=== PATIENT | female | born 1990 | race Caucasian/White ===

== ENCOUNTER 2017-11-28 09:27 | Emergency (ER) | payer MEDICAID, SELFPAY ==
[~2017-11-28] VITALS: Ht 180.3 cm; Wt 93.2 kg
[2017-11-28] MEDS ORDERED: LITH300C3 PO (09:50)
[2017-11-28] MEDS ORDERED: LURA40 PO (09:50)
[2017-11-28] MEDS ORDERED: SERT50TA12 PO (09:50)
[2017-11-28] MEDS ORDERED: HYDR-4031 PO (09:50)
[2017-11-28] MEDS ORDERED: BUSP5TAB20 PO (09:50)
[2017-11-28] MEDS ORDERED: QUET25TA PO (09:50)
[2017-11-28] MEDS ORDERED: AMOX TR/POT CLAV 500 MG/125 MG TABLET PO ONE (12:00)
[2017-11-28] MEDS ORDERED: HYDROCODONE/ACETAMINOPHEN 5-325 MG TABLET PO ONE (12:00)
[2017-11-28 12:30] VITALS: BP 125/16
== END 2017-11-28 12:59 | disposition home or self-care (01) ==
LOC: EMS 09:28
DX: K04.7 Periapical abscess without sinus (principal); K05.10 Chronic gingivitis, plaque induced; F32.9 Major depressive disorder, single episode, unspecified; F17.210 Nicotine dependence, cigarettes, uncomplicated; F12.10 Cannabis abuse, uncomplicated; F17.200 Nicotine dependence, unspecified, uncomplicated; Z88.5 Allergy status to narcotic agent
CPT/HCPCS: 99283; 99406

== ENCOUNTER 2018-02-23 16:43 | Emergency (ER) | payer MEDICAID ==
[~2018-02-23] VITALS: Ht 180.3 cm; Wt 113.6 kg
[~2018-02-23 16:43] MED LIST: BUSP5TAB20 PO; HYDR-4031 PO; LITH300C3 PO; LURA40 PO; QUET25TA PO; SERT50TA12 PO
[2018-02-23 16:48] VITALS: BP 121/88
[2018-02-23] MEDS ORDERED: TRAZ-147 PO (16:55)
[2018-02-23] MEDS ORDERED: HYD25 PO (17:04)
== END 2018-02-23 20:30 | disposition left against medical advice (07) ==
LOC: EMS 16:44
DX: F41.9 Anxiety disorder, unspecified (principal); Z53.21 Procedure and treatment not carried out due to patient leaving prior to being seen by health care provider

== ENCOUNTER 2018-04-13 10:24 | Emergency (ER) | payer MEDICAID ==
[~2018-04-13] VITALS: Ht 180.3 cm; Wt 109.1 kg
[~2018-04-13 10:24] MED LIST changes: +HYD25 PO; -HYDR-4031 PO; -LURA40 PO; -QUET25TA PO; -SERT50TA12 PO; +TRAZ-220 PO
[2018-04-13] MEDS ORDERED: ARIP300S3 IM (10:26)
[2018-04-13] MEDS ORDERED: LEVO50TA11 PO (11:15)
[2018-04-13] MEDS ORDERED: VENL150C2 PO (11:16)
[2018-04-13 12:52] LABS: BASOPHILS % (AUTO) 1.4 % (0.0-2.0); EOSINOPHILS % (AUTO) 5.8 % (1.0-6.0); HEMATOCRIT 39.2 % (36-46); HEMOGLOBIN 13.4 g/dL (12.0-16.0); LYMPHOCYTES # (AUTO) 3.1 K/uL (1.0-4.8); LYMPHOCYTES % (AUTO) 30.3 % (22.0-44.0); MEAN CORPUSCULAR HEMOGLOBIN 29.9 pg (26.0-34.0); MEAN CORPUSCULAR HGB CONC 34.1 G/dL (31.0-37.0); MEAN CORPUSCULAR VOLUME 88 fL (80-100); MONOCYTES # (AUTO) 0.7 K/uL (0.1-1.0); NEUTROPHILS # (AUTO) 5.7 K/uL (1.8-7.7); NEUTROPHILS % (AUTO) 55.5 % (40.0-70.0); PLATELET COUNT (AUTO) 363 K/uL (150-450); RED BLOOD CELL COUNT(AUTO) 4.47 MIL/uL (4.00-5.20); RED CELL DISTRIBUTION WIDTH 13.2 % (11.5-14.5)
[2018-04-13] MEDS ORDERED: IBUPROFEN 600 MG TABLET PO ONE (13:00)
[2018-04-13 13:08] LABS: CALCIUM, TOTAL 9.3 mg/dL (8.8-10.5); CHLORIDE 103 mmol/L (98-107); CREATINE KINASE, TOTAL 42 U/L (26-192); CREATININE 0.76 mg/dL (0.60-1.30); GLOMERULAR FILTR. RATE CALC > 60 mL/min (>60); GLUCOSE,RANDOM 92 mg/dL (70-110); POTASSIUM 4.4 mmol/L (3.5-5.1); SODIUM SERUM 137 mmol/L (136-145); UREA NITROGEN, BLOOD 11 mg/dL (7-18)
[2018-04-13 13:13] LABS: ANION GAP 9 mmol/L (8-16); CARBON DIOXIDE 25 mmol/L (22-29)
[2018-04-13 13:48] VITALS: BP 119/71
== END 2018-04-13 13:50 | disposition home or self-care (01) ==
LOC: EMS 10:25
DX: M79.661 Pain in right lower leg (principal); M79.662 Pain in left lower leg; F17.210 Nicotine dependence, cigarettes, uncomplicated; F31.9 Bipolar disorder, unspecified; F12.90 Cannabis use, unspecified, uncomplicated; Z88.1 Allergy status to other antibiotic agents; Z88.5 Allergy status to narcotic agent
CPT/HCPCS: 93925; 93970; 99285; 99406

== ENCOUNTER 2018-11-20 14:20 | Emergency (ER) | payer MEDICAID ==
[~2018-11-20] VITALS: Ht 177.8 cm; Wt 103.2 kg
[~2018-11-20 14:20] MED LIST changes: +ARIP300S3 IM; +LEVO50TA11 PO; +VENL150C2 PO
[2018-11-20] MEDS ORDERED: LIDOCAINE 1% 10 ML VIAL INJ ONE (16:45)
[2018-11-20 16:53] VITALS: BP 121/73
[2018-11-20] MEDS ORDERED: POVIDONE-IODINE 10% 15 ML SOLUTION UD TP ONE (17:00)
== END 2018-11-20 18:06 | disposition home or self-care (01) ==
LOC: EMS 14:20
DX: T16.2XXA Foreign body in left ear, initial encounter (principal); F31.9 Bipolar disorder, unspecified; F12.90 Cannabis use, unspecified, uncomplicated; F17.210 Nicotine dependence, cigarettes, uncomplicated; Z88.1 Allergy status to other antibiotic agents; Z88.5 Allergy status to narcotic agent; Z79.899 Other long term (current) drug therapy; X58.XXXA Exposure to other specified factors, initial encounter; Y93.89 Activity, other specified; Y92.89 Other specified places as the place of occurrence of the external cause; Y99.8 Other external cause status
CPT/HCPCS: 99284; J3490

== ENCOUNTER 2019-05-01 15:34 | Emergency (ER) | payer MEDICAID ==
[~2019-05-01] VITALS: Ht 180.3 cm; Wt 120.5 kg
[2019-05-01] MEDS ORDERED: CARI1.5C PO (16:00)
[2019-05-01] MEDS ORDERED: ZOLP10TA7 PO (16:00)
[2019-05-01] MEDS ORDERED: METF-960 PO (16:00)
[2019-05-01 18:07] LABS: BASOPHILS % (AUTO) 0.2 % (0.0-2.0); EOSINOPHILS % (AUTO) 1.9 % (1.0-6.0); HEMATOCRIT 44.5 % (36-46); HEMOGLOBIN 14.5 g/dL (12.0-16.0); LYMPHOCYTES # (AUTO) 2.8 K/uL (1.0-4.8); LYMPHOCYTES % (AUTO) 26.3 % (22.0-44.0); MEAN CORPUSCULAR HEMOGLOBIN 28.9 pg (26.0-34.0); MEAN CORPUSCULAR HGB CONC 32.5 G/dL (31.0-37.0); MEAN CORPUSCULAR VOLUME 89 fL (80-100); MONOCYTES # (AUTO) 0.8 K/uL (0.1-1.0); MONOCYTES % (AUTO) 7.7 % (2.0-9.0); NEUTROPHILS # (AUTO) 6.7 K/uL (1.8-7.7); NEUTROPHILS % (AUTO) 63.9 % (40.0-70.0); PLATELET COUNT (AUTO) 401 K/uL (150-450); RED CELL DISTRIBUTION WIDTH 12.9 % (11.5-14.5)
[2019-05-01 18:31] LABS: ANION GAP 12 mmol/L (8-16); CALCIUM, TOTAL 10.4 mg/dL (8.8-10.5); CARBON DIOXIDE 24 mmol/L (22-29); CHLORIDE 104 mmol/L (98-107); CREATININE 0.72 mg/dL (0.60-1.30); GLOMERULAR FILTR. RATE CALC > 60 mL/min (>60); GLUCOSE,RANDOM 98 mg/dL (70-110); POTASSIUM 4.1 mmol/L (3.5-5.1); SODIUM SERUM 140 mmol/L (136-145); UREA NITROGEN, BLOOD 9 mg/dL (7-18)
[2019-05-01 18:42] LABS: APPEARANCE,URINE CLOUDY (CLEAR); BILIRUBIN,URINE NEGATIVE (NEGATIVE); GLUCOSE, URINE (UA) NEGATIVE (NEGATIVE); KETONES,URINE NEGATIVE (NEGATIVE); LEUKOCYTE ESTERASE ,URINE LARGE (NEGATIVE); NITRATE,URINE NEGATIVE (NEGATIVE); OCCULT BLOOD,URINE LARGE (NEGATIVE); PH,URINE 7.5 (5.0-8.0); PROTEIN,URINE POS 1+ (NEGATIVE)
[2019-05-01 18:47] LABS: ALANINE AMINOTRANSFERASE 12 U/L (12-78); ALKALINE PHOSPHATASE 98 U/L (46-116); ASPARTATE AMINOTRANSFERASE 13 U/L (15-37); BILIRUBIN,TOTAL 0.3 mg/dL (0.1-1.0); HCG,QUANTITATIVE < 1 mIU/mL (0-6); TOTAL PROTEIN, SERUM 8.1 g/dL (6.4-8.2)
[2019-05-01] MEDS: SODIUM CHLORIDE 0.9% 1,000 ML IV ONE (19:15)
[2019-05-01] MEDS: MetroNIDAZOLE 250 MG TABLET PO ONE (19:16)
[2019-05-01] MEDS: CefTRIAXone 1 GM/DEXTROSE 50 ML IV ONE (19:16)
[2019-05-01 19:19] LABS: BACTERIA,URINE Many /HPF (None Seen); RBC,URINE 51-100 /HPF (0-2); SQUAMOUS EPITHELIAL CELL,UR Moderate /LPF (None Seen); WBC,URINE 26-50 /HPF (0-5)
[2019-05-01 21:35] VITALS: BP 135/85
== END 2019-05-01 22:13 | disposition home or self-care (01) ==
LOC: EMS 15:36
DX: N39.0 Urinary tract infection, site not specified (principal); N99.89 Other postprocedural complications and disorders of genitourinary system; N89.8 Other specified noninflammatory disorders of vagina; G89.18 Other acute postprocedural pain; F31.9 Bipolar disorder, unspecified; F17.210 Nicotine dependence, cigarettes, uncomplicated; F12.90 Cannabis use, unspecified, uncomplicated; Z88.1 Allergy status to other antibiotic agents; Z88.5 Allergy status to narcotic agent; Z79.84 Long term (current) use of oral hypoglycemic drugs
CPT/HCPCS: 36415; 76856; 80053; 81001; 84702; 85025; 87077; 87086; 87186; 93005; 96365; 96366; 99284; J0696; J7030

== ENCOUNTER 2020-10-23 06:47 | Inpatient (IN) | payer MEDICAID ==
[~2020-10-23] VITALS: Ht 180.3 cm; Wt 102.3 kg
[~2020-10-23 06:47] MED LIST changes: +CARI1.5C PO; -HYD25 PO; -LITH300C3 PO; +METF-960 PO; -TRAZ-220 PO; +ZOLP10TA8 PO
[2020-10-23] MEDS ORDERED: ZOLPIDEM TARTRATE 10 MG TABLET PO PRN (11:00)
[2020-10-23 14:07] VITALS: BP 124/72
[2020-10-23 16:02] VITALS: BP 111/70
[2020-10-23] MEDS: LORazepam 2 MG TABLET PO PRN (16:21)
[2020-10-23] MEDS: HALOPERIDOL 5 MG TABLET PO PRN (16:21)
[2020-10-24] VITALS: BP 128/68
[2020-10-24] MEDS ORDERED: MAGNESIUM HYDROXIDE SUSPENSION 30 ML UDCUP PO PRN (06:15)
[2020-10-24] MEDS ORDERED: BENZOCAINE/MENTHOL LOZENGE PO PRN (06:15)
[2020-10-24] MEDS ORDERED: DOCUSATE SODIUM 100 MG CAPSULE PO PRN (06:15)
[2020-10-24] MEDS ORDERED: OMEPRAZOLE 20 MG CAPSULE PO PRN (06:15)
[2020-10-24] MEDS ORDERED: MAG HYDROX/AL HYDROX/SIMETH ES 30 ML SUSPENSION UDCUP PO PRN (06:15)
[2020-10-24] MEDS ORDERED: CloNIDine HCL 0.1 MG TABLET PO PRN (06:15)
[2020-10-24] MEDS ORDERED: ONDANSETRON HCL 4 MG TABLET PO PRN (06:15)
[2020-10-24] MEDS ORDERED: ACETAMINOPHEN 325 MG TABLET PO PRN (06:15)
[2020-10-24] MEDS ORDERED: LOPERAMIDE HCL 2 MG CAPSULE PO PRN (06:15)
[2020-10-24] MEDS ORDERED: BACITRACIN 28 GM OINTMENT TP PRN (06:15)
[2020-10-24] MEDS ORDERED: IBUPROFEN 600 MG TABLET PO PRN (06:15)
[2020-10-24] MEDS ORDERED: PETROLATUM,WHITE 28 GM JELLY TP PRN (06:15)
[2020-10-24] MEDS ORDERED: ALBUTEROL SULFATE HFA 90 MCG/PUFF 8 GM INHALER IH PRN (06:15)
[2020-10-24 07:51] LABS: BASOPHILS % (AUTO) 1.4 % (0.0-2.0); HEMATOCRIT 41.3 % (36-46); HEMOGLOBIN 13.8 g/dL (12.0-16.0); LYMPHOCYTES # (AUTO) 2.7 K/uL (1.0-4.8); LYMPHOCYTES % (AUTO) 32.4 % (22.0-44.0); MEAN CORPUSCULAR HEMOGLOBIN 30.2 pg (26.0-34.0); MEAN CORPUSCULAR HGB CONC 33.5 G/dL (31.0-37.0); MEAN CORPUSCULAR VOLUME 90 fL (80-100); MONOCYTES # (AUTO) 0.6 K/uL (0.1-1.0); MONOCYTES % (AUTO) 7.5 % (2.0-9.0); NEUTROPHILS # (AUTO) 4.6 K/uL (1.8-7.7); NEUTROPHILS % (AUTO) 54.7 % (40.0-70.0); PLATELET COUNT (AUTO) 323 K/uL (150-450); RED BLOOD CELL COUNT(AUTO) 4.59 MIL/uL (4.00-5.20); RED CELL DISTRIBUTION WIDTH 12.6 % (11.5-14.5)
[2020-10-24 07:54] LABS: HEMOGLOBIN A1C 4.7 % (3.8-5.6)
[2020-10-24] MEDS: LORazepam 2 MG TABLET PO PRN ×3 (08:08→19:04)
[2020-10-24 08:10] VITALS: BP 114/72
[2020-10-24 08:19] LABS: ALANINE AMINOTRANSFERASE 17 U/L (12-78); ALBUMIN 3.8 g/dL (3.4-5.0); ALKALINE PHOSPHATASE 66 U/L (46-116); ANION GAP 6 mmol/L (8-16); ASPARTATE AMINOTRANSFERASE 11 U/L (15-37); BILIRUBIN,TOTAL 0.3 mg/dL (0.1-1.0); CALCIUM, TOTAL 9.4 mg/dL (8.8-10.5); CARBON DIOXIDE 26 mmol/L (22-29); CHLORIDE 105 mmol/L (98-107); CHOLESTEROL 135 mg/dL (131-200); CREATININE 0.69 mg/dL (0.60-1.30); FREE T4 (FREE THYROXINE) 1.14 ng/dL (0.76-1.46); GLOMERULAR FILTR. RATE CALC > 60 mL/min (>60); GLUCOSE,RANDOM 101 mg/dL (70-110); HCG,QUANTITATIVE < 1 mIU/mL (0-6); HDL CHOLESTEROL 34 mg/dL (40-60); LDL CHOL (CALC.) 84 mg/dL (0-130); POTASSIUM 4.1 mmol/L (3.5-5.1); SODIUM SERUM 137 mmol/L (136-145); THYROID STIMULATING HORMONE 2.67 uIU/mL (0.36-3.74); TOTAL PROTEIN, SERUM 7.5 g/dL (6.4-8.2); TRIGLYCERIDES 84 mg/dL (15-150); UREA NITROGEN, BLOOD 11 mg/dL (7-18)
[2020-10-24] MEDS: NICOTINE 21 MG/24 HOUR PATCH TD SCH (12:20)
[2020-10-24] MEDS: HALOPERIDOL 5 MG TABLET PO PRN ×2 (14:46→19:04)
[2020-10-24 16:11] VITALS: BP 117/71
[2020-10-24] MEDS ORDERED: HYDROCORTISONE 1% 30 GM OINTMENT TP PRN (23:15)
[2020-10-24] MEDS ORDERED: DiphenhydrAMINE HCL 25 MG CAPSULE PO PRN (23:15)
[2020-10-25 00:22] VITALS: BP 114/73
[2020-10-25 08:01] VITALS: BP 115/69
[2020-10-25 08:05] VITALS: BP 124/79
[2020-10-25] MEDS: NICOTINE 21 MG/24 HOUR PATCH TD SCH (08:13)
[2020-10-25] MEDS: ClonazePAM 0.5 MG TABLET PO SCH ×2 (08:13→16:19)
[2020-10-25] MEDS: LITHIUM CARBONATE 600 MG CAPSULE PO SCH ×2 (08:14→16:19)
[2020-10-25] MEDS: HALOPERIDOL 5 MG TABLET PO PRN (12:28)
[2020-10-25 16:16] VITALS: BP 129/71
[2020-10-25] MEDS: QUEtiapine FUMARATE 300 MG TABLET PO SCH (20:40)
[2020-10-25] MEDS ORDERED: QUEtiapine FUMARATE 300 MG TABLET PO SCH (21:00)
[2020-10-26 01:59] VITALS: BP 120/70
[2020-10-26] MEDS: ClonazePAM 0.5 MG TABLET PO SCH ×2 (08:01→16:05)
[2020-10-26] MEDS: LITHIUM CARBONATE 600 MG CAPSULE PO SCH ×2 (08:01→16:05)
[2020-10-26] MEDS: NICOTINE 21 MG/24 HOUR PATCH TD SCH (08:03)
[2020-10-26 08:28] VITALS: BP 122/69
[2020-10-26 16:01] VITALS: BP 109/65
[2020-10-26] MEDS: AMOX TR/POT CLAV 875 MG/125 MG TABLET PO SCH (16:11)
[2020-10-26] MEDS: QUEtiapine FUMARATE 300 MG TABLET PO SCH (20:00)
[2020-10-27 01:26] VITALS: BP 103/69
[2020-10-27 08:06] VITALS: BP 100/59
[2020-10-27] MEDS: LITHIUM CARBONATE 600 MG CAPSULE PO SCH ×2 (09:17→16:08)
[2020-10-27] MEDS: AMOX TR/POT CLAV 875 MG/125 MG TABLET PO SCH ×2 (09:17→16:08)
[2020-10-27] MEDS: ClonazePAM 0.5 MG TABLET PO SCH ×2 (09:17→16:08)
[2020-10-27] MEDS: NICOTINE 21 MG/24 HOUR PATCH TD SCH (09:18)
[2020-10-27 16:08] VITALS: BP 115/64
[2020-10-27] MEDS: QUEtiapine FUMARATE 300 MG TABLET PO SCH (20:39)
[2020-10-28 04:13] VITALS: BP 112/67
[2020-10-28 08:01] VITALS: BP 100/61
[2020-10-28] MEDS: ClonazePAM 0.5 MG TABLET PO SCH ×2 (09:47→16:40)
[2020-10-28] MEDS: AMOX TR/POT CLAV 875 MG/125 MG TABLET PO SCH ×2 (09:47→16:40)
[2020-10-28] MEDS: LITHIUM CARBONATE 600 MG CAPSULE PO SCH ×2 (09:47→16:40)
[2020-10-28] MEDS: NICOTINE 21 MG/24 HOUR PATCH TD SCH (09:50)
[2020-10-28 16:28] VITALS: BP 114/60
[2020-10-28] MEDS: QUEtiapine FUMARATE 300 MG TABLET PO SCH (20:31)
[2020-10-29 00:07] VITALS: BP 109/62
[2020-10-29 08:10] VITALS: BP 124/74
[2020-10-29] MEDS: AMOX TR/POT CLAV 875 MG/125 MG TABLET PO SCH (08:19)
[2020-10-29] MEDS: NICOTINE 21 MG/24 HOUR PATCH TD SCH (08:19)
[2020-10-29] MEDS: ClonazePAM 0.5 MG TABLET PO SCH (08:19)
[2020-10-29] MEDS: LITHIUM CARBONATE 600 MG CAPSULE PO SCH (08:19)
[2020-10-29] MEDS ORDERED: THIAMINE 100 MG TABLET PO SCH (09:00)
[2020-10-29] MEDS ORDERED: FOLIC ACID 1 MG TABLET PO SCH (09:00)
[2020-10-29] MEDS ORDERED: MULTIVITAMINS WITH MINERALS, THERAPEUTIC TABLET PO SCH (09:00)
[2020-10-29 09:17] LABS: APPEARANCE,URINE CLEAR (CLEAR); BILIRUBIN,URINE NEGATIVE (NEGATIVE); GLUCOSE, URINE (UA) NEGATIVE (NEGATIVE); KETONES,URINE NEGATIVE (NEGATIVE); LEUKOCYTE ESTERASE ,URINE NEGATIVE (NEGATIVE); NITRATE,URINE NEGATIVE (NEGATIVE); OCCULT BLOOD,URINE NEGATIVE (NEGATIVE); PROTEIN,URINE NEGATIVE (NEGATIVE); UROBILINOGEN,URINE 0.2 mg/dL (<=1.0)
[2020-10-29 09:23] LABS: AMPHET/METH SCREEN,URINE NEGATIVE (NEGATIVE); BARBITURATE SCREEN, URINE NEGATIVE (NEGATIVE); BENZODIAZEPINES SCREEN,URINE NEGATIVE (NEGATIVE); CANNABINOID SCREEN,URINE POSITIVE (NEGATIVE); COCAINE SCREEN,URINE NEGATIVE (NEGATIVE); METHADONE SCREEN, URINE NEGATIVE (NEGATIVE); OPIATE SCREEN,URINE NEGATIVE (NEGATIVE)
[2020-10-29 09:32] LABS: PHENCYCLIDINE SCREEN,URINE NEGATIVE (NEGATIVE)
[2020-10-29] MEDS ORDERED: LITH600C5 PO (14:43)
[2020-10-29] MEDS ORDERED: QUET300T2 PO (14:43)
[2020-10-29] MEDS ORDERED: CLON-592 PO (14:43)
[2020-10-29] MEDS ORDERED: AMOX1TAB16 PO (14:45)
== END 2020-10-29 15:45 | disposition home or self-care (01) | DRG 753 ==
LOC: B3A 13:28
PROVIDERS: ADMIT Psychiatry & Neurology Psychiatry; ATTEND Psychiatry & Neurology Psychiatry
DX: F31.9 Bipolar disorder, unspecified (principal); Z88.8 Allergy status to other drugs, medicaments and biological substances; F41.9 Anxiety disorder, unspecified; K59.00 Constipation, unspecified; R45.851 Suicidal ideations; G47.00 Insomnia, unspecified
CPT/HCPCS: 80307; 83036; 84436; 84439; 84443; 87081

== ENCOUNTER 2020-11-05 13:15 | Emergency (ER) | payer MEDICAID ==
[~2020-11-05] VITALS: Ht 177.8 cm; Wt 75.0 kg
[~2020-11-05 13:15] MED LIST changes: +AMOX1TAB16 PO; -ARIP300S3 IM; -BUSP5TAB20 PO; -CARI1.5C PO; +CLON-592 PO; +LITH600C5 PO; -METF-960 PO; +QUET300T2 PO; -VENL150C2 PO; -ZOLP10TA8 PO
[2020-11-05 14:05] LABS: BASOPHILS % (AUTO) 1.3 % (0.0-2.0); EOSINOPHILS % (AUTO) 3.3 % (1.0-6.0); HEMATOCRIT 40.2 % (36-46); HEMOGLOBIN 13.6 g/dL (12.0-16.0); LYMPHOCYTES # (AUTO) 3.4 K/uL (1.0-4.8); LYMPHOCYTES % (AUTO) 28.5 % (22.0-44.0); MEAN CORPUSCULAR HEMOGLOBIN 30.5 pg (26.0-34.0); MEAN CORPUSCULAR HGB CONC 33.9 G/dL (31.0-37.0); MEAN CORPUSCULAR VOLUME 90 fL (80-100); MONOCYTES # (AUTO) 0.7 K/uL (0.1-1.0); NEUTROPHILS # (AUTO) 7.2 K/uL (1.8-7.7); NEUTROPHILS % (AUTO) 60.9 % (40.0-70.0); PLATELET COUNT (AUTO) 362 K/uL (150-450); RED BLOOD CELL COUNT(AUTO) 4.47 MIL/uL (4.00-5.20); RED CELL DISTRIBUTION WIDTH 12.3 % (11.5-14.5)
[2020-11-05 14:12] LABS: APPEARANCE,URINE CLEAR (CLEAR); BILIRUBIN,URINE NEGATIVE (NEGATIVE); GLUCOSE, URINE (UA) NEGATIVE (NEGATIVE); KETONES,URINE 15 mg/dL (NEGATIVE); LEUKOCYTE ESTERASE ,URINE NEGATIVE (NEGATIVE); NITRATE,URINE NEGATIVE (NEGATIVE); OCCULT BLOOD,URINE SMALL (NEGATIVE); PROTEIN,URINE NEGATIVE (NEGATIVE); UROBILINOGEN,URINE 0.2 mg/dL (<=1.0)
[2020-11-05 14:16] LABS: ANION GAP 10 mmol/L (8-16); CALCIUM, TOTAL 9.7 mg/dL (8.8-10.5); CARBON DIOXIDE 26 mmol/L (22-29); CHLORIDE 106 mmol/L (98-107); CREATININE 0.82 mg/dL (0.60-1.30); GLOMERULAR FILTR. RATE CALC > 60 mL/min (>60); GLUCOSE,RANDOM 92 mg/dL (70-110); POTASSIUM 3.9 mmol/L (3.5-5.1); SODIUM SERUM 142 mmol/L (136-145); UREA NITROGEN, BLOOD 4 mg/dL (7-18)
[2020-11-05 14:23] LABS: BACTERIA,URINE None Seen /HPF (None Seen); RBC,URINE 0-2 /HPF (0-2); SQUAMOUS EPITHELIAL CELL,UR Few /LPF (None Seen); WBC,URINE 0-2 /HPF (0-5)
[2020-11-05 14:27] LABS: ALANINE AMINOTRANSFERASE 17 U/L (12-78); ALBUMIN 4.3 g/dL (3.4-5.0); ALKALINE PHOSPHATASE 74 U/L (46-116); ASPARTATE AMINOTRANSFERASE 10 U/L (15-37); BILIRUBIN,TOTAL 0.4 mg/dL (0.1-1.0); HCG,QUANTITATIVE < 1 mIU/mL (0-6); LIPASE 70 U/L (73-393); TOTAL PROTEIN, SERUM 8.1 g/dL (6.4-8.2)
[2020-11-05] MEDS ORDERED: PANTOPRAZOLE SODIUM 40 MG/VIAL IVP ONE (15:15)
[2020-11-05] MEDS ORDERED: FAMOTIDINE 20 MG TABLET PO ONE (15:15)
[2020-11-05 15:30] VITALS: BP 128/70
== END 2020-11-05 15:35 | disposition home or self-care (01) ==
LOC: EMS 13:19
DX: K29.70 Gastritis, unspecified, without bleeding (principal); F31.9 Bipolar disorder, unspecified; F17.210 Nicotine dependence, cigarettes, uncomplicated; F12.90 Cannabis use, unspecified, uncomplicated; Z88.1 Allergy status to other antibiotic agents; Z88.5 Allergy status to narcotic agent
CPT/HCPCS: 36415; 76700; 80053; 81001; 83690; 84702; 85025; 93005; 96374; 99285; C9113

== ENCOUNTER 2022-06-28 16:06 | Emergency (ER) | payer MEDICAID ==
[~2022-06-28] VITALS: Ht 180.3 cm; Wt 113.0 kg
[2022-06-28] MEDS ORDERED: ACETAMINOPHEN 500 MG TABLET PO ONE (17:15)
[2022-06-28] MEDS ORDERED: IBUPROFEN 600 MG TABLET PO ONE (17:15)
[2022-06-28 20:00] VITALS: BP 112/74
== END 2022-06-28 20:05 | disposition home or self-care (01) ==
LOC: EMS 16:15
DX: M79.605 Pain in left leg (principal); M79.604 Pain in right leg; F31.9 Bipolar disorder, unspecified; F17.210 Nicotine dependence, cigarettes, uncomplicated; F12.90 Cannabis use, unspecified, uncomplicated; Z98.890 Other specified postprocedural states; Z88.5 Allergy status to narcotic agent
CPT/HCPCS: 99283

== ENCOUNTER 2023-08-04 11:43 | Emergency (ER) | payer MEDICAID ==
[~2023-08-04] VITALS: Ht 180.3 cm; Wt 113.6 kg
[2023-08-04 11:47] VITALS: TEMP 98.4
[2023-08-04] MEDS ORDERED: BUSP15 PO (12:06)
[2023-08-04] MEDS ORDERED: ARIP15TA27 PO (12:06)
[2023-08-04] MEDS ORDERED: ARIP400S3 IM (12:06)
[2023-08-04] MEDS ORDERED: METF-81 PO (12:06)
[2023-08-04] MEDS ORDERED: FAMOTIDINE 20 MG/2 ML VIAL IVP ONE (12:30)
[2023-08-04] MEDS ORDERED: KETOROLAC TROMETHAMINE 30 MG/ML VIAL IVP ONE (12:30)
[2023-08-04] MEDS ORDERED: MAG HYDROX/ALUMINUM HYD/SIMETH 30 ML SUSPENSION UDCUP PO ONE (12:30)
[2023-08-04] MEDS ORDERED: SODIUM CHLORIDE 0.9% 1,000 ML IV ONE (12:30)
[2023-08-04 12:44] LABS: APPEARANCE,URINE HAZY (CLEAR); BILIRUBIN,URINE NEGATIVE (NEGATIVE); COLOR,URINE YELLOW (YELLOW); GLUCOSE, URINE (UA) NEGATIVE (NEGATIVE); LEUKOCYTE ESTERASE ,URINE SMALL (NEGATIVE); NITRATE,URINE NEGATIVE (NEGATIVE); OCCULT BLOOD,URINE TRACE (NEGATIVE); PH,URINE 5.5 (5.0-8.0); PROTEIN,URINE TRACE mg/dL (NEGATIVE); SPECIFIC GRAVITIY, URINE 1.031 (1.003-1.030); UROBILINOGEN,URINE <=1.0 mg/dL (<=1.0)
[2023-08-04 12:58] LABS: RBC,URINE 0-2 /HPF (0-2)
[2023-08-04 12:59] LABS: BACTERIA,URINE Moderate /HPF (None Seen); SQUAMOUS EPITHELIAL CELL,UR Many /LPF (None Seen)
[2023-08-04 13:05] LABS: ANION GAP 5 mmol/L (8-16); BASOPHILS % (AUTO) 1.1 % (0.0-2.0); CALCIUM, TOTAL 9.3 mg/dL (8.8-10.5); CARBON DIOXIDE 28 mmol/L (22-29); CHLORIDE 103 mmol/L (98-107); EOSINOPHILS % (AUTO) 1.3 % (1.0-6.0); GLOMERULAR FILTR. RATE CALC > 60 mL/min (>60); GLUCOSE,RANDOM 88 mg/dL (70-110); HEMATOCRIT 43.7 % (36-46); HEMOGLOBIN 14.7 g/dL (12.0-16.0); LYMPHOCYTES # (AUTO) 3.4 K/uL (1.0-4.8); LYMPHOCYTES % (AUTO) 29.5 % (22.0-44.0); MEAN CORPUSCULAR HEMOGLOBIN 30.1 pg (26.0-34.0); MEAN CORPUSCULAR HGB CONC 33.6 G/dL (31.0-37.0); MEAN CORPUSCULAR VOLUME 90 fL (80-100); MONOCYTES % (AUTO) 8.7 % (2.0-9.0); NEUTROPHILS # (AUTO) 6.9 K/uL (1.8-7.7); NEUTROPHILS % (AUTO) 59.4 % (40.0-70.0); PLATELET COUNT (AUTO) 351 K/uL (150-450); POTASSIUM 3.7 mmol/L (3.5-5.1); RED BLOOD CELL COUNT(AUTO) 4.88 MIL/uL (4.00-5.20); SODIUM SERUM 136 mmol/L (136-145); UREA NITROGEN, BLOOD 12 mg/dL (7-18); WHITE BLOOD COUNT (AUTO) 11.7 K/uL (4.5-11.0)
[2023-08-04 13:11] LABS: ALANINE AMINOTRANSFERASE 24 U/L (12-78); ALKALINE PHOSPHATASE 87 U/L (46-116); ASPARTATE AMINOTRANSFERASE 15 U/L (15-37); BILIRUBIN,TOTAL 0.6 mg/dL (0.1-1.0); LIPASE 33 U/L (16-77); TOTAL PROTEIN, SERUM 8.2 g/dL (6.4-8.2)
[2023-08-04] MEDS ORDERED: IOHEXOL 350 MG/ML 100 ML VIAL ONE (13:18)
[2023-08-04] MEDS ORDERED: SODIUM CHLORIDE 0.9% 100 ML ONE (13:18)
[2023-08-04] MEDS ORDERED: METOCLOPRAMIDE HCL 5 MG/ML 2 ML VIAL IVP ONE (13:30)
[2023-08-04] MEDS ORDERED: DiphenhydrAMINE HCL 50 MG/ML VIAL IVP ONE (13:30)
[2023-08-04] MEDS ORDERED: CEPH-558 PO (13:57)
[2023-08-04] MEDS ORDERED: ONDA-104 PO (13:57)
[2023-08-04] MEDS ORDERED: CefTRIAXone 1 GM/DEXTROSE 50 ML IV ONE (14:00)
[2023-08-04] MEDS ORDERED: ACET-3385 PO (14:10)
[2023-08-04] MEDS ORDERED: POLY238P PO (14:59)
[2023-08-04 16:11] VITALS: BP 122/76; PULSE 92; RESP 18
[2023-08-05] MEDS ORDERED: LIRA3PEN SQ (12:22)
[2023-08-05] MEDS ORDERED: FAMO20 PO (12:22)
== END 2023-08-04 16:38 | disposition home or self-care (01) ==
LOC: EMS 11:45
DX: N39.0 Urinary tract infection, site not specified (principal); R10.84 Generalized abdominal pain; F31.9 Bipolar disorder, unspecified; E03.9 Hypothyroidism, unspecified; F17.210 Nicotine dependence, cigarettes, uncomplicated; F12.90 Cannabis use, unspecified, uncomplicated; Z98.890 Other specified postprocedural states; Z88.8 Allergy status to other drugs, medicaments and biological substances
CPT/HCPCS: 99285; 74177; 96365; 96375; 76705; 96361; 80053; 81001; 83690; 84703; 85025; 36415; 87086; 87186; J0696; J1200; J3490; J1885; J2765; Q9967; J7030; J7050

== ENCOUNTER 2024-09-14 09:29 | Emergency (ER) | payer MEDICAID ==
[~2024-09-14] VITALS: Ht 180.3 cm; Wt 115.9 kg
[~2024-09-14 09:29] MED LIST changes: +ACET-3385 PO; -AMOX1TAB16 PO; +ARIP15TA27 PO; +ARIP400S3 IM; +BUSP15 PO; +CEPH-558 PO; +FAMO20 PO; +LIRA3PEN SQ; -LITH600C5 PO; +METF-81 PO; +ONDA-104 PO; +POLY238P PO; -QUET300T2 PO
[2024-09-14 09:31] VITALS: TEMP 98.5
[2024-09-14] MEDS ORDERED: BENZ0.5T52 PO (09:34)
[2024-09-14] MEDS ORDERED: LITH300C3 PO (09:34)
[2024-09-14] MEDS ORDERED: OXCA300T28 PO (09:34)
[2024-09-14] MEDS ORDERED: LURA80TA4 PO (09:34)
[2024-09-14] MEDS ORDERED: LEVO150T11 PO (09:34)
[2024-09-14] MEDS ORDERED: QUET100T34 PO (09:34)
[2024-09-14] MEDS: IBUPROFEN 600 MG TABLET PO ONE (10:05)
[2024-09-14 11:48] VITALS: BP 136/77; PULSE 80; RESP 18; O2SAT 100
== END 2024-09-14 12:10 | disposition home or self-care (01) ==
LOC: EMS 09:32
DX: S90.32XA Contusion of left foot, initial encounter (principal); F31.9 Bipolar disorder, unspecified; E03.9 Hypothyroidism, unspecified; F17.210 Nicotine dependence, cigarettes, uncomplicated; F12.90 Cannabis use, unspecified, uncomplicated; Z88.0 Allergy status to penicillin; Z88.1 Allergy status to other antibiotic agents; Z88.5 Allergy status to narcotic agent
CPT/HCPCS: 99283

== ENCOUNTER 2024-10-02 09:19 | Emergency (ER) | payer MEDICAID ==
[~2024-10-02] VITALS: Ht 180.3 cm; Wt 113.6 kg
[~2024-10-02 09:19] MED LIST changes: -ACET-3385 PO; -ARIP15TA27 PO; -ARIP400S3 IM; +BENZ0.5T52 PO; -BUSP15 PO; -CEPH-558 PO; -CLON-592 PO; -FAMO20 PO; +LEVO150T11 PO; -LEVO50TA11 PO; -LIRA3PEN SQ; +LITH300C3 PO; +LURA80TA4 PO; -METF-81 PO; -ONDA-104 PO; +OXCA300T28 PO; -POLY238P PO; +QUET100T34 PO
[2024-10-02 09:45] VITALS: TEMP 98.6
[2024-10-02 10:30] VITALS: BP 126/78; PULSE 78; RESP 16; O2SAT 98
[2024-10-02 10:30] LABS: BASOPHILS % (AUTO) 0.2 % (0.0-2.0); EOSINOPHILS % (AUTO) 3.6 % (1.0-6.0); HEMATOCRIT 45.7 % (36-46); HEMOGLOBIN 15.1 g/dL (12.0-16.0); LYMPHOCYTES # (AUTO) 3.2 K/uL (1.0-4.8); LYMPHOCYTES % (AUTO) 27.3 % (22.0-44.0); MEAN CORPUSCULAR HEMOGLOBIN 29.5 pg (26.0-34.0); MEAN CORPUSCULAR VOLUME 89 fL (80-100); MONOCYTES # (AUTO) 0.9 K/uL (0.1-1.0); MONOCYTES % (AUTO) 7.6 % (2.0-9.0); NEUTROPHILS # (AUTO) 7.2 K/uL (1.8-7.7); NEUTROPHILS % (AUTO) 61.3 % (40.0-70.0); PLATELET COUNT (AUTO) 354 K/uL (150-450); RED BLOOD CELL COUNT(AUTO) 5.13 MIL/uL (4.00-5.20); RED CELL DISTRIBUTION WIDTH 13.2 % (11.5-14.5); WHITE BLOOD COUNT (AUTO) 11.7 K/uL (4.5-11.0)
[2024-10-02 10:38] LABS: ANION GAP 8 mmol/L (8-16); CALCIUM, TOTAL 9.1 mg/dL (8.8-10.5); CARBON DIOXIDE 29 mmol/L (22-29); CHLORIDE 102 mmol/L (98-107); GLOMERULAR FILTR. RATE CALC > 60 mL/min (>60); GLUCOSE,RANDOM 92 mg/dL (70-110); POTASSIUM 4.4 mmol/L (3.5-5.1); SODIUM SERUM 139 mmol/L (136-145); UREA NITROGEN, BLOOD 12 mg/dL (7-18)
[2024-10-02 10:44] LABS: ALANINE AMINOTRANSFERASE 18 U/L (12-78); ALBUMIN 3.5 g/dL (3.4-5.0); ALKALINE PHOSPHATASE 121 U/L (46-116); ASPARTATE AMINOTRANSFERASE 18 U/L (15-37); BILIRUBIN,TOTAL 0.2 mg/dL (0.1-1.0); TOTAL PROTEIN, SERUM 7.6 g/dL (6.4-8.2)
== END 2024-10-02 11:39 | disposition home or self-care (01) ==
LOC: EMS 09:28
DX: K64.4 Residual hemorrhoidal skin tags (principal); E03.9 Hypothyroidism, unspecified; F12.90 Cannabis use, unspecified, uncomplicated; F17.210 Nicotine dependence, cigarettes, uncomplicated; Z88.0 Allergy status to penicillin; Z88.1 Allergy status to other antibiotic agents; Z88.5 Allergy status to narcotic agent; Z79.899 Other long term (current) drug therapy
CPT/HCPCS: 80048; 80076; 85025; 99283